=== PATIENT | female | born 2000 | race Caucasian/White ===

== ENCOUNTER 2023-07-31 03:12 | Emergency (ER) | payer BC, SELFPAY ==
[2023-07-31 03:15] VITALS: BP 122/76
--- NOTE | 2023-07-31 04:30 | ED.GENMED ---
History of Present Illness
<STEPH Soto - Last Filed: 07/31/23 06:37>
General
Chief Complaint: Headache
Source: patient
Exam Limitations: none
Time Seen by Provider: 07/31/23 04:11
Nursing documentation reviewed up to this point in time: agreed with
Travel History
Have you had any contact with someone who has COVID-19?: No
Do you have any symptoms of coronavirus? Fever > 100 degrees, chills, cough, shortness of breath, sore throat, loss of taste or smell, muscle aches, or headache?: No
History of Present Illness
History of Present Illness:
22 y/o F with history of migraines presents to ED with mother c/o migraine. She states the migraine started around 2200. Patient had an aura of flashing/swirling lights prior to migraine onset. She also reports numbness in her arms prior to migraine
onset. She took Tylenol and Nurtec with mild relief around 2300. She does report feeling nauseous after taking the Nurtec. Patient usually takes Almotriptan for her migraines but was at school and did not have her medication on her. She reports her
migraine was initially 10/10 but is now at 7/10. Patient usually gets mild migraines few times a week. She states she has not had a severe migraine like today since December. Patient did have an MRI done last year with normal results. Patient denies
LOC, fall, dizziness, chest pain, blurry vision, or palpitations.
If applicable-neuro sx onset
Onset of symptoms known: Yes
Date of onset of symptoms: 07/30/23
Time of onset of symptoms: 22:00
Past History
<STEPH Soto - Last Filed: 07/31/23 06:37>
Past History
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
ED Past Surgical History: None
Social History
Tobacco: Non-smoker
Personal: Single
Living: with family
Employment: Employed
Review of Systems
<STEPH Soto - Last Filed: 07/31/23 06:37>
Review of Systems
Allergies reviewed?: Yes
All Other Systems: ROS reviewed and negative except as documented in HPI and ROS
Constitutional: Reports no symptoms
EENT: Reports no symptoms
Respiratory: Reports no symptoms
Cardiac: Reports no symptoms
ABD/GI: Reports no symptoms
: Reports no symptoms
Musculoskeletal: Reports no symptoms
Skin: Reports no symptoms
Neurological: Reports headache
Endocrine: Reports no symptoms
Hematologic/Lymphatic: Reports no symptoms
Psychiatric: Reports no symptoms
Phy Exam
<LuizaSTEPH Alexander - Last Filed: 07/31/23 06:37>
General Physical Exam
General Presentation: well appearing and no apparent distress
General age: appears stated age
General Skin: warm and dry
General Habitus: normal
General Mental: alert
General Hydration: appears well hydrated
ENT Exam
ENT Exam: EOMI
Eye Exam
Eye Exam: PERRL, EOMI and conjunctiva normal
Cardiovascular Exam
Cardiovascular Exam: regular rate/rhythm, no edema, no gallop, no murmur and normal peripheral pulses
Pulmonary Exam
Pulmonary Exam: lungs clear, no respiratory distress, no rales, no crackles and no rhonchi
Neurological Exam
Neurological Exam: alert and oriented x3
Musculoskeletal Exam
Musculoskeletal Exam: full ROM
Skin Exam
Skin Exam: normal color, warm/dry and no rash
Psychiatric Exam
Psychiatric Exam: normal mood/affect
Course
<STEPH Soto - Last Filed: 07/31/23 06:37>
Orders/Labs/Results
Orders:
Orders
07/31/23 04:44
Diphenhydramine [Benadryl] 50 mg IV NOW STA
Prochlorperazine [Compazine] 10 mg IV NOW STA
07/31/23 04:45
0.9% Sodium Chloride 1000 ml [Nss] 1,000 ml IV BOLUS
Ketorolac [Toradol] 30 mg IV NOW STA
07/31/23 05:23
Diphenhydramine [Benadryl] 50 mg .ROUTE .STK-MED ONE
Vital Signs
Initial and Last Documented VS:
Initial Vital Signs
Temp Pulse Resp BP Pulse Ox
98 F 94 18 122/76 100
07/31/23 03:15 07/31/23 03:15 07/31/23 03:15 07/31/23 03:15 07/31/23 03:15
Last Documented Vital Signs
Temp Pulse Resp BP Pulse Ox
98 F 94 18 122/76 100
07/31/23 03:15 07/31/23 03:15 07/31/23 03:15 07/31/23 03:15 07/31/23 03:15
<Claribel Rondon, - Last Filed: 07/31/23 06:39>
Orders/Labs/Results
Orders:
Orders
07/31/23 04:44
Diphenhydramine [Benadryl] 50 mg IV NOW STA
Prochlorperazine [Compazine] 10 mg IV NOW STA
07/31/23 04:45
0.9% Sodium Chloride 1000 ml [Nss] 1,000 ml IV BOLUS
Ketorolac [Toradol] 30 mg IV NOW STA
07/31/23 05:23
Diphenhydramine [Benadryl] 50 mg .ROUTE .STK-MED ONE
Vital Signs
Initial and Last Documented VS:
Initial Vital Signs
Temp Pulse Resp BP Pulse Ox
98 F 94 18 122/76 100
07/31/23 03:15 07/31/23 03:15 07/31/23 03:15 07/31/23 03:15 07/31/23 03:15
Last Documented Vital Signs
Temp Pulse Resp BP Pulse Ox
98 F 94 18 122/76 100
07/31/23 03:15 07/31/23 03:15 07/31/23 03:15 07/31/23 03:15 07/31/23 03:15
<STEPH Soto - Last Filed: 07/31/23 06:37>
MDM/Problems Addressed
Differential Diagnosis Includes:
Migraine
<STEPH Soto - Last Filed: 07/31/23 06:37>
*Critical Care Note
Total Time (30-74mins, 75-104mins- exclusive of procedures): Not Applicable
<Claribel Rondon DO - Last Filed: 07/31/23 06:39>
*Pulse Oximetry
Patient hypoxic: no
*Critical Care Note
Total Time (30-74mins, 75-104mins- exclusive of procedures): Not Applicable
ED Attending Note
<STEPH Soto - Last Filed: 07/31/23 06:37>
-
Portions of this chart may have been created with voice recognition software.� Occasional wrong word or��sound alike� substitutions may have occurred due to the inherent limitations of voice recognition software.
<Claribel Rondon DO - Last Filed: 07/31/23 06:39>
ED Attending Note
Patient seen and examined by attending physician: Yes
I performed the substantive portion of visit, reviewed & personally made and approve the management plan that is documented in note by myself or ESTELA.: Yes
I performed a history and physical exam of patient and discussed management with resident, I reviewed resident's note and agree with documented findings and plan of care.: Yes
ED Attending Note:
This is a 22-year-old female who has longstanding history of migraine headaches since age 15. Unremarkable neurologic evaluation including unremarkable imaging.
Has been trialed on various different abortive medications with various success.
She follows with a neurologist at school.
She complains of her typical migraine headache that began this evening. She initially took Tylenol without relief then took a dose of Nurtec. She admits to mild improvement in headache for about 1 to 2 hours but the headache returned.
She complains of nausea without vomiting.
Prior to tonight she has been feeling well.
Previous ED visits for similar episodes of headache, most recently June 2022.
She denies recent URI nor GI illness. She denies fevers or chills. She denies risk of .
She has done well previously with IV Compazine, Benadryl, Toradol and is requesting similar.
GENERAL: 22-year-old female appears her stated age, awake and alert, appears mildly uncomfortable, otherwise in no distress. Mother is accompanying.
EYE: pupils equal and reactive. anicteric
NECK: Supple, nontender, no meningismus, no significant adenopathy.
ENT: poral mucosa is moist. No rhinorrhea.
CARDIAC: Regular rate and rhythm. no murmur.
LUNGS: Clear breath sounds bilaterally, no acute respiratory distress, no wheezes/rales/rhonchi
ABDOMEN: Soft, nondistended, without focal tenderness, normoactive BS.
NEUROLOGICAL: Alert and oriented x3, no focal neuro deficits. Gait is steady.
SKIN: Warm and dry, normal color, skin intact. No rash.
MUSCULOSKELETAL: No C/C/E. peripheral pulses are full and equal b/l. No palpable tenderness.
PSYCH: Normal and appropriate interaction.
22-year-old presents with typical migraine headache that began tonight. Complains of nausea without vomiting.
No concerning accompanying symptoms.
Has done well with IV Compazine, Benadryl, Toradol in the past.
Will provide similar along with IV fluids and continue to observe.
No indication for imaging nor laboratory studies.
07/31/2023 0632 AM
Patient feeling improved with near complete relief of headache. Resting comfortably.
She has ambulated to and from the bathroom with steady unaided gait.
Will discharge to home with recommendations for follow-up with PCP and/or neurologist for recheck as needed.
Discharge Plan
Departure
Patient Disposition: Home (Routine Discharge)
Date of Disposition: 07/31/23
Time of Disposition: 06:30
Patient with high blood pressure during this ER visit?: No
Condition: Good
Discharge Problem:
ACUTE MIGRAINE HEADACHE
Instructions: Migraines (DC)
Prescriptions:
No Action
. Control Pill
1 tab PO DAILY
ketorolac 10 mg tablet
10 mg PO TID PRN (Reason: migraine) Qty: 10 0RF
Referrals:
Dora Farley DO [Family Provider] - Call in 1-3 days for appt
Interventions
Interventions:
*Risk Screen - Suicide Last Done: 07/31/23 03:15
*General Assessment Last Done: 07/31/23 05:45
*Neglect/Abuse Screening Last Done: 07/31/23 03:15
ED- Fall Risk Assessment Last Done: 07/31/23 05:45
*ED COVID-19 Vaccine History Last Done: 07/31/23 05:45
ED- Neurological Assessment Last Done: 07/31/23 05:45
[2023-07-31] MEDS: BENADRYL 50 MG IV (05:00)
[2023-07-31] MEDS: TORADOL 30 MG IV (05:01)
[2023-07-31] MEDS: COMPAZINE 10 MG IV (05:01)
[2023-07-31] MEDS: NSS 1000 IV (05:01)
== END 2023-07-31 06:54 | disposition home or self-care (01) ==
LOC: EMR 03:12
PROVIDERS: EMERGENCY PHYSICIAN Emergency Medicine; FAMILY PHYSICIAN Family Medicine
DX: G43.909 Migraine, unspecified, not intractable, without status migrainosus (principal)
CPT/HCPCS: 99284; 96374; 96375 ×2; 96361

== ENCOUNTER 2023-11-25 03:38 | Emergency (ER) | payer BC, SELFPAY ==
[2023-11-25 03:40] VITALS: BP 124/80
[2023-11-25] MEDS: BENADRYL 25 MG IV (04:26)
[2023-11-25] MEDS: COMPAZINE 10 MG IV (04:26)
[2023-11-25] MEDS: NSS 1000 IV (04:26)
--- NOTE | 2023-11-25 04:32 | ED.GENMED ---
History of Present Illness
General
Chief Complaint: Headache
Source: patient
Exam Limitations: none
Time Seen by Provider: 11/25/23 03:59
Travel History
Have you had any contact with someone who has COVID-19?: No
Do you have any symptoms of coronavirus? Fever > 100 degrees, chills, cough, shortness of breath, sore throat, loss of taste or smell, muscle aches, or headache?: No
History of Present Illness
History of Present Illness:
23-year-old female presents with a migraine. Patient states that she has symptoms consistent with her migraine. She states this is not quite as bad as some of her migraines and she did not have an aura at this time. However, she has a headache
behind her hide she is nauseous with some photophobia. She tried taking her medications at home without relief. No neck pain, no fever, no injury. She [facility] Her headache started earlier tonight and slowly
progressed to the evening. Patient denies thunderclap headache
Past History
Past History
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
ED Past Surgical History: None
Social History
Tobacco: Non-smoker
Personal: Single
Living: with family
Employment: Employed
Phy Exam
Physical Exam
Physical Exam:
CONSTITUTIONAL Patient alert and oriented to person, place and time. Well-appearing. Vital signs reviewed.
HEAD atraumatic, normocephalic.
EYES eyelids normal to inspection, Pupils equally round and reactive to light, Extraocular muscles intact, Conjunctiva normal, Sclera normal.
NECK normal range of motion, Trachea midline, no jugular venous distention.
RESPIRATORY CHEST No respiratory distress noted, Chest expansion equal, Bilateral breath sounds clear.
CARDIOVASCULAR regular rate and rhythm, Heart sounds normal.
ABDOMEN abdomen nontender, Bowel sounds normal. No distention.
BACK normal inspection, no obvious deformities
UPPER EXTREMITY range of motion normal, Motor strength normal, no cyanosis, no edema.
LOWER EXTREMITY range of motion normal, Motor strength normal, no cyanosis, no edema.
NEURO Speech normal, No focal motor deficits, Darwin coma scale 15, Memory normal, Cranial Nerves intact to screening exam. No pronator drift
SKIN skin warm, dry, and normal in color.
PSYCHIATRIC patient oriented to person place and time, Normal affect.
Course
Orders/Labs/Results
Orders:
Orders
11/25/23 04:19
0.9% Sodium Chloride 1000 ml [Nss] 1,000 ml IV BOLUS
Diphenhydramine [Benadryl] 25 mg IV NOW STA
Prochlorperazine [Compazine] 10 mg IV NOW STA
Vital Signs
Initial and Last Documented VS:
Initial Vital Signs
Temp Pulse Resp BP Pulse Ox
98.0 F 76 18 124/80 96
11/25/23 03:40 11/25/23 03:40 11/25/23 03:40 11/25/23 03:40 11/25/23 03:40
Last Documented Vital Signs
Temp Pulse Resp BP Pulse Ox
98.0 F 76 18 124/80 96
11/25/23 03:40 11/25/23 03:40 11/25/23 03:40 11/25/23 03:40 11/25/23 03:40
MDM/Problems Addressed
MDM/Problems Addressed:
Migraine headache
*Pulse Oximetry
Patient hypoxic: no
*Critical Care Note
Total Time (30-74mins, 75-104mins- exclusive of procedures): Not Applicable
Data Reviewed
Source: patient and family
Further Testing Considered But Not Given:
Consider CT head but symptoms are consistent with her migraine and gradual in onset.
Patient Management
Escalation/DeEscalation of care consider admission/obs:
Patient feels much better. Exam unremarkable. Okay for discharge and outpatient follow-up
ED Attending Note
-
Portions of this chart may have been created with voice recognition software.� Occasional wrong word or��sound alike� substitutions may have occurred due to the inherent limitations of voice recognition software.
Discharge Plan
Departure
Patient Disposition: Home (Routine Discharge)
Date of Disposition: 11/25/23
Time of Disposition: 05:49
Patient with high blood pressure during this ER visit?: No
Discharge Problem:
Headache
Instructions: Headache, Adult (DC)
Prescriptions:
No Action
. Control Pill
1 tab PO DAILY
ketorolac 10 mg tablet
10 mg PO TID PRN (Reason: migraine) Qty: 10 0RF
Referrals:
Dora Farley, DO [Family Provider] -
Activity Restrictions/Additional Instructions:
Please drink plenty of fluids. Return immediately for fevers, vomiting, weakness of any kind or any other concerns. Please see your doctor in the next 3 to 5 days for follow-up and reevaluation.
Interventions
Interventions:
*Neglect/Abuse Screening Last Done: 11/25/23 03:42
ED- Neurological Assessment Last Done: 11/25/23 04:42
Discharge Date and Time
Print Language: [id number]
[2023-11-25 05:59] VITALS: BP 121/82
== END 2023-11-25 06:01 | disposition home or self-care (01) ==
LOC: EMR 03:38
PROVIDERS: EMERGENCY PHYSICIAN Emergency Medicine; FAMILY PHYSICIAN Family Medicine
DX: R51.9 Headache, unspecified (principal); G90.A Postural orthostatic tachycardia syndrome [POTS]
CPT/HCPCS: 99282; 96374; 96375; 96361

== ENCOUNTER → 2025-02-27 08:23 | Outpatient (REF) | payer BC, SELFPAY | LOC: HWRAD 08:23 | PROVIDERS: ATTENDING PHYSICIAN Obstetrics & Gynecology | DX: R10.2 Pelvic and perineal pain (principal) | CPT/HCPCS: 76830; 76856 ==